=== PATIENT | female | born 1955 | race Caucasian/White ===

== ENCOUNTER 2025-09-24 08:43 | Inpatient (IN) | payer MEDICARE ==
[2025-09-23 13:24] LABS: MEAN PLATELET VOLUME 7.7 FL (7.4-10.4); PRE OP HEMATOCRIT 34.6 % (35.0-45.0); PRE OP HEMOGLOBIN 11.8 g/dL (12.0-16.0); PRE OP PLATELET COUNT 283 X10'3 (140-440); PRE OP WHITE BLOOD COUNT 5.5 10'3 (4.8-10.8); RED CELL DISTRIBUTION WIDTH 12.8 % (11.5-14.5)
[2025-09-23 13:38] LABS: CREATININE 0.94 MG/DL (0.40-0.90); PRE OP ALT 20 U/L (30-65); PRE OP ANION GAP 7 (8-16); PRE OP AST 19 U/L (10-37); PRE OP BILIRUB, TOTAL 0.3 MG/DL (0.0-1.0); PRE OP GLUCOSE 114 MG/DL (70-104); PRE OP POTASSIUM 4.2 MMOL/L (3.4-5.1); PRE OP SODIUM 139 MMOL/L (135-145); TOTAL CARBON DIOXIDE 29.2 MMOL/L (24-32); eGFR 59 ML/MIN
--- NOTE | 2025-09-23 14:40 | ELECTROCARDIOGRAPH REPORT ---
[facility] Test Date: 2025-09-23 Test Time: 12:59:34 Pat Name: DWIGHT OLIVA Department: PRE/OP CARDIOLOGY Room: Gender: F Civil Engineer In Training: DONATO : 1955 Requested By: TISHA ROMERO Order Number: [id number] Reading MD: Dr. MARIEL Mcmahon Measurements Intervals [place] Rate: 67 P: 58 OK: 155 QRS: -21 QRSD: 98 T: 7 QT: 412 QTc: 435 Interpretive Statements Sinus rhythm Left ventricular hypertrophy Electronically Signed On 09-23-2025 17:34:[address] MARIEL Mcmahon Please click the below link to view image of tracing.
[2025-09-24] VITALS (24 sets, daily range): BP systolic 104–179; BP diastolic 44–94; PULSE 68–93; RESP 8–18; TEMP 98.3; O2SAT 91–100
[~2025-09-24] VITALS: Ht 160 cm; Wt 64.3 kg
[2025-09-24] MEDS: DOCUMENT DATE & TIME OF BETA-BLOCKER PO ONE (07:30)
[~2025-09-24 08:43] MED LIST: ACET-3068 PO; AMLO5TAB16 PO; CALC-157 PO; CHOL100046 PO; FLUT15.815 NS; GABA300C; HYDROmorphone/PF 0.2 MG/ML SYRINGE IV PRN; KETO15CR2 TOP; LISI40TA20 PO; LORA10CA PO; MELO-102 PO; METO25TA6 PO; METO50TA17 PO; OMEP40CA21 PO; PCA WASTE DOCUMENTATION 1 MG ML MC SCH; POTA99TA10 PO; SIMV10TA98 PO; VALA100031 PO; VITA-268 PO; [UNRECOGNIZED DRUG - CODE]; [UNRECOGNIZED DRUG - CODE] PO; bisacodyl 10mg suppository rectal RC PRN; magnesium hydroxide 30ml (MOM) UD suspension PO PRN; non-formulary drug (Potassium Gluconate 99 MG) PO SCH; ondansetron/PF 4mg/2ml inj IV PRN; oxyCODONE IR 5mg (immed. release) tablet PO PRN
[2025-09-24] MEDS ORDERED: oxyCODONE IR 5mg (immed. release) tablet PO PRN (10:00)
[2025-09-24] MEDS: ringers solution, lacted 1,000 ML IV SCH ×2 (10:25→13:25)
[2025-09-24] MEDS: ceFAZolin 2gm/dext,iso 50mL 50 ML IV ONE (10:26)
[2025-09-24] MEDS: vancomycin/NS 1 GM ADD-VANTAGE 250 ML IV ONE (10:26)
[2025-09-24] MEDS ORDERED: ROPIVAcaine 0.5% (5mg/ml) 30ml vial ONE ×2 (12:25→13:16)
[2025-09-24] MEDS ORDERED: ketorolac trometh 30MG/ML vial 30 MG/ML VIAL ONE (12:25)
[2025-09-24] MEDS ORDERED: cloNIDine hcl/PF 100mcg/ml inj ONE (12:50)
[2025-09-24] MEDS ORDERED: fentaNYL/PF 50MCG/1 ML 2ML syringe ONE (12:54)
[2025-09-24] MEDS ORDERED: midazolam 1 mg/ML 2ml injection ONE (12:55)
[2025-09-24] MEDS ORDERED: LIDOcaine 1%/PF 5ML 10 MG/ML VIAL ONE (13:17)
[2025-09-24] MEDS ORDERED: propofol inj 20 ML IV ONE (13:17)
[2025-09-24] MEDS ORDERED: dexamethasone sod phosphate 4mg/ml inj. ONE (13:17)
[2025-09-24] MEDS ORDERED: 0.9 % SODIUM CHLORIDE 10 ML VIAL ONE (13:17)
[2025-09-24] MEDS ORDERED: hydrALAZINE 20mg/ml inj. IV PRN (13:25)
[2025-09-24] MEDS ORDERED: ondansetron/PF 4mg/2ml inj IV PRN (13:25)
[2025-09-24] MEDS ORDERED: HYDROmorphone/PF 0.2 MG/ML SYRINGE IV PRN ×2 (13:25)
[2025-09-24] MEDS ORDERED: morphine 4 MG/ML inj SYRINge IV PRN (13:25)
[2025-09-24] MEDS: ROPIVAcaine 0.5% (5mg/ml) 30ml vial IJ ONE (13:44)
[2025-09-24] MEDS ORDERED: rocuronium 10mg/ml inj IV ONE (13:45)
[2025-09-24] MEDS ORDERED: fentaNYL /PF 50mcg/ml 5ml ampule ONE (13:47)
[2025-09-24] MEDS ORDERED: ondansetron/PF 4mg/2ml inj ONE (13:47)
[2025-09-24] MEDS: povidone-iodine 120ml topical solution TP ONE (14:37)
[2025-09-24] MEDS ORDERED: glycopyrrolate 0.2mg/ml inj ONE (14:56)
[2025-09-24] MEDS: potassium cl 20mEq in 1/2 NS 1,000 ML IV SCH (15:20)
[2025-09-24] MEDS: acetaminophen 1,000mg/100ml IV 100 ML IV PRN (16:06)
[2025-09-24] MEDS: labetalol 20mg/4ml (5mg/ml) syringe IV PRN (16:07)
--- NOTE | 2025-09-24 18:10 | OPERATIVE REPORT ---
Operative Report Operative Report OPERATIVE REPORT [facility] [address] [place] [address] Date of service: September 24, 2025 PREOPERATIVE DIAGNOSIS S82.141A-823.00 Closed fracture of right tibial plateau, initial encounter POSTOPERATIVE DIAGNOSIS S82.141A-823.00 Closed fracture of right tibial plateau, initial encounter Operation Performed 13400 Open Tx of bicondylar tibial plateau Fx with this modifier: RT Procedure: Open reduction and internal fixation right tibial plateau fracture. Fluoroscopic guidance of operative procedure. Surgeon: Jonathan Soares M.D. [employer] Supervisor: Estela Rios PA-C Anesthesiologist: Dr. Lorenz Anesthesia: General anesthetic Indications: A 70-year-old female with a subacute, approximately 6-week-old, displaced and depressed right tibial plateau fracture. Findings: There was a subacute, comminuted and displaced fracture of the tibial plateau which was bicondylar. Estimated Blood Loss: 100 mL Complications: None Implants: 1 3.5 mm proximal medial tibial locking plate from bone bridge from the was utilized, with appropriate screws. Procedure: The risks, benefits, expected results, and possible complications of the planned procedure had been explained to the patient and informed consent obtained. The patient was taken to the operating room where a general anesthetic was administered. The right leg was prepped and draped in the usual sterile fashion with the patient in the supine position on the operating table. A t imeout was taken prior to surgery confirming patient identification, operative side operative site, planned procedure, administration of pre-operative antibiotics, site marking, recognition of allergies, and confirming presence of all necessary implants and instruments. a standard midline anterior approach was performed to the knee and proximal tibia. Fracture fragments were identified, mobilized, and curettaged to remove fibrous material and clot. The tamp was utilized to push the medial plateau back up to anatomic alignment with the lateral plateau Pointed reduction forceps were utilized to gain fracture reduction. An appropriate length plate was positioned, and checked fluoroscopically. One screw was placed across the plateau outside of the plate to gain provisional fixation between the two plateaus. Limited proximal and distal screws were placed and position of the plate and alignment of the fracture checked both clinically and fluoroscopically. The remaining screws were then placed.Flouroscopy was utilized to guide the placement and length of the screws. Excellent stable fixation was obtained. Fluoroscopy confirmed appropriate position of all hardware, appropriate length of the screws, and acceptable alignment of the fracture. The wound was irrigated thoroughly with normal saline and then closed in layers with 1-0 Stratafix suture for deep tissue, 2-0 Stratafix suture for subcutaneous tissue, and 4-0 Stratafix for skin. Sterile dressings were applied, and the patient was returned to the recovery room in satisfactory condition. Electronically Signed by: Jonathan Soares MD Doctor, Orthopedic Surgery Signed on: 09/24/2025 06:09 PM JONATHAN SOARES MD Sep 24, 2025 18:10
[2025-09-24] MEDS: ceFAZolin/D5W- 1GM premix 50 ML IV SCH (20:18)
[2025-09-25 00:40] VITALS: BP 100/48; PULSE 68; O2SAT 91
[2025-09-25] MEDS ORDERED: HALLS - SOOTHE MENTHOL 1.8 MG cough drop LOZENGE MM PRN (00:40)
[2025-09-25] MEDS: vancomycin/NS 1 GM ADD-VANTAGE 250 ML IV SCH (01:45)
[2025-09-25 02:00] VITALS: BP 135/69; PULSE 64; RESP 14; TEMP 98; O2SAT 94
[2025-09-25] MEDS: ceFAZolin/D5W- 1GM premix 50 ML IV SCH (03:37)
[2025-09-25 04:40] VITALS: BP 110/47; PULSE 82; O2SAT 94
[2025-09-25 06:00] VITALS: BP 124/64; PULSE 77; RESP 16; TEMP 97.7; O2SAT 95
[2025-09-25 06:21] LABS: MEAN PLATELET VOLUME 8.1 FL (7.4-10.4); RED CELL DISTRIBUTION WIDTH 12.7 % (11.5-14.5)
[2025-09-25 06:40] LABS: TOTAL CARBON DIOXIDE 26.0 MMOL/L (24-32)
--- NOTE | 2025-09-25 06:51 | DISCHARGE SUMMARY ---
Discharge Summary Ortho [facility] ~ Discharge Summary Discharge Date: Sep 25, 2025 *Problems/Diagnosis: (1) Status post open reduction and internal fixation (ORIF) of fracture Status: Acute Admission Diagnosis: proximal tibia fracture Discharge Diagnosis\Comment: See above Operations\Procedures Right tibia open reduction internal fixation with plate and screw fixation Consultants: None Complications: None Condition on DC: Stable Discharge Summary: Patient was admitted on date of surgery. surgery went without complications. patient had an uneventful overnight stay. Pain is well controlled. Neurovascularly intact distally, no calf tenderness, dressing clean dry and intact. Patient will remain toe-touch weight-bearing. Patient has two wheelchairs at home and was provided a walker through the hospital. She is stable for discharge home. Total Time Spent on D/C: Up to 30 Minutes Medications Home Meds: Home Medications Active Reported Metoprolol Tartrate* (Metoprolol Tartrate) 50 Mg Tablet 1 Tab PO QAM B Complex (Vitamin B Complex) 1 Each Tablet 1 Tab PO DAILY Lisinopril* (Lisinopril) 40 Mg Tablet 1 Tab PO DAILY Move Free Plus MSM-Vit D3 Tab (Gluc/Chond/MSM/D3/Hyal/Mike Bor) 750-100 Mg Tablet Potassium Gluconate 595 Mg (99 Mg) Tablet 99 Mg PO DAILY Prilosec (Omeprazole) 40 Mg Capsule 0.5 Cap PO DAILY 30 Days Ketoconazole 2 % Cream..g. 1 Applic TOP DAILY TO AFFECTED AREA Meloxicam 15 Mg Tablet 1 Tab PO DAILY Claritin (Loratadine) 10 Mg Capsule 1 Cap PO DAILY 30 Days Aller-Juvenal (Fluticasone Propionate) 50 Mcg/Actuation [place].susp 2 Spr NS DAILY PRN Simvastatin 10 Mg Tablet 1 Tab PO HS Tylenol W/Codeine #3 Tab (Acetaminophen With Codeine) 300 Mg-30 Mg Tablet 1 Tab PO TID PRN Acetaminophen 325 Mg Tablet 2 Tab PO Q6H PRN Amlodipine Besylate 5 Mg Tablet 1 Tab PO DAILY Vitamin D3 (Cholecalciferol (Vitamin D3)) 25 Mcg (1000 Unit) Capsule 1 Cap PO DAILY 30 Days Metoprolol Tartrate 25 Mg Tablet 1 Tab PO HS Valacyclovir (Valacyclovir HCl) 1,000 Mg Tablet 1 Tab PO DAILY Oyster Shell Calcium (Calcium Carbonate) 500 Mg Calcium (1250 Mg) Tablet 1 Tab PO DAILY Neurontin (Gabapentin) 300 Mg Capsule 1 Tab TID Supervising Physician Supervising Physician: YENNI Munguia PAC Sep 25, 2025 06:51
[2025-09-25 08:00] VITALS: RESP 14; O2SAT 95
[2025-09-25] MEDS: calcium carbonate 500mg tablet PO SCH (08:57)
[2025-09-25] MEDS: pantoprazole 40mg Tablet.DR PO SCH (09:01)
[2025-09-25] MEDS: cholecalciferol (vitamin D3) 1,000 unit (25mcg) tablet PO SCH (09:02)
[2025-09-25] MEDS: vitamin B comp w/Vit. C tab 1 TAB TABLET PO SCH (09:03)
[2025-09-25 10:00] VITALS: BP 135/69; PULSE 79; RESP 18; TEMP 98.4; O2SAT 95
== END 2025-09-25 12:15 | disposition home or self-care (01) | DRG 494 ==
LOC: PAS 08:43 → OBSVTOIN 08:44 → ORTHO 4S 08:44
PROVIDERS: ADMIT Orthopaedic Surgery; ATTEND Orthopaedic Surgery
PROC: BQ1DZZZ Fluoroscopy of Right Lower Leg (ICD-10-PCS; 2025-09-24)
PROC: 0QSG04Z Reposition Right Tibia with Internal Fixation Device, Open Approach (ICD-10-PCS; principal; 2025-09-24 12:52)
DX: S82.141A Displaced bicondylar fracture of right tibia, initial encounter for closed fracture (principal); I10 Essential (primary) hypertension; Z79.899 Other long term (current) drug therapy; X58.XXXA Exposure to other specified factors, initial encounter; Y93.89 Activity, other specified; Y92.89 Other specified places as the place of occurrence of the external cause; Y99.8 Other external cause status
CPT/HCPCS: 36415; 73590; 76000; 80051; 80053; 82948; 85025; 93005; 96365; 96366; 96367; 96375; 97161; 97530; A4615; A4618; A6449; C1713; C9250; G0378; J0131; J0690; J0735; J1100; J1885; J2250; J2405; J2704; J2710; J2795; J3010; J3373; J3480; J3490; J7120